=== PATIENT | male | born 1970 | race Caucasian/White ===

== ENCOUNTER 2024-08-11 07:35 | Outpatient (CLI) | payer OTHER, SELFPAY ==
--- NOTE | 2024-08-12 07:38 | NM_ITS ---
NOTE: Report was unsigned for reason: Order was edited. Original Signature date and time was: 08/12/24 @ 0934 WS: [id number] NUCLEAR MEDICINE 24 HOUR I-123 THYROID UPTAKE INDICATION: Thyroid nodule TECHNIQUE: I-123 24 HOUR THYROID UPTAKE WITH PLANAR IMAGING. 150 [facility] BENNIE 123 COMPARISON: None FINDINGS: Hot nodule in the LEFT mid and lower thyroid pole. This could be further evaluated with ultrasound. Normal homogeneous uptake RIGHT thyroid. 24-hour uptake 14.3% within normal limits NORMAL 24H THRYOID UPTAKE 8-35% MTDD NM/NM thyroid uptake multi [id number] IMPRESSION: 1. Normal 24-hour thyroid uptake 14.3% 2. Hot nodule in the LEFT mid and lower thyroid pole. This can be further eval uate with ultrasound.
== END 2024-08-11 07:36 | disposition home or self-care (01) ==
PROVIDERS: Visit Provider Family Medicine
DX: E04.1 Nontoxic single thyroid nodule (principal); R93.89 Abnormal findings on diagnostic imaging of other specified body structures
CPT/HCPCS: 78014; A9516

== ENCOUNTER 2024-11-25 09:55 | Outpatient (RCR) | payer OTHER, SELFPAY | END 2024-12-15 23:59 | disposition home or self-care (01) | LOC: SST 09:55 | PROVIDERS: Visit Provider Family Medicine | DX: R22.1 Localized swelling, mass and lump, neck (principal) | CPT/HCPCS: 92610 ==

== ENCOUNTER 2024-11-30 10:33 | Outpatient (CLI) | payer OTHER, SELFPAY ==
--- NOTE | 2024-11-30 10:41 | FL_ITS ---
WS: [id number] FL barium swallow modifd [id number] REASON FOR EXAM: Other dysphagia FLUOROSCOPY TIME: 2min [id number] # OF SPOT FILMS: 0 TECHNIQUE: Examination was supervised by the speech therapy department. The patient was examined in the sitting upright lateral position. The swallowing of varying consistencies of barium was monitored fluoroscopically and video recorded. FINDINGS: There is no penetration of contrast into the laryngeal vestibule. No aspiration. There was no impedance of the barium tablet passage through the thoracic esophagus and into the stomach. FL/FL barium swallow modifd [id number] IMPRESSION: A detailed report of the swallowing will be rendered by the speech therapy depa rtment. No aspiration. No esophageal obstruction.
== END 2024-11-30 10:34 | disposition home or self-care (01) ==
LOC: RAD 10:34
PROVIDERS: PCP Family Medicine; Visit Provider Family Medicine
DX: R13.19 Other dysphagia (principal)
CPT/HCPCS: 74230; 92611

== ENCOUNTER 2025-03-01 10:23 | Outpatient (CLI) | payer OTHER, SELFPAY ==
--- NOTE | 2025-03-01 10:28 | US_ITS ---
WS: [id number] THYROID ULTRASOUND HISTORY: REPEAT ABNORMAL THYROID NODULE FOLLOW UP NEEDED COMPARISON: Thyroid uptake 08/12/2024 Right lobe: 2.0 cm x 2.4 cm x 4.3 cm (w x ap x l). Volume: 10.0 cm3. Enlarged nodular mildly heterogeneous thyroid. No discrete well-formed nodules. The gland is nodular with mixed echogenicity. Left lobe: 1.6 cm x 1.8 cm x 4.8 cm (w x ap x l). Volume: 6.6 cm3. Mildly enlarged thyroid. Lobe is heterogeneous. There is no discrete nodule in the lower pole to correspond to the hyperfunctioning nodule seen on the thyroid uptake scan. Isthmus: 0.3 cm. US/US thyroid [id number] IMPRESSION: 1. Heterogeneous enlarged thyroid. There is no discrete nodule identified. The hyperfunctioning nodule in the lower pole of the LEFT thyroid noted on the thy roid uptake scan is not identified as a discrete nodule. 2. Findings are most likely due to a goiter.
== END 2025-03-01 10:24 | disposition home or self-care (01) ==
LOC: RAD 10:24
PROVIDERS: PCP Family Medicine; Visit Provider Nurse Practitioner Family
DX: Z01.89 Encounter for other specified special examinations (principal); E04.2 Nontoxic multinodular goiter; R94.6 Abnormal results of thyroid function studies
CPT/HCPCS: 76536

== ENCOUNTER 2025-03-10 12:08 | Outpatient (CLI) | payer OTHER, SELFPAY ==
--- NOTE | 2025-03-10 12:14 | MR_ITS ---
WS: [email or web address] MRI BRAIN WITHOUT CONTRAST HISTORY: NUMBNESS TINGLING IN BOTH ARMS SHOULDERS, history of prior brain surgery. COMPARISON: None available. TECHNIQUE: Diffusion imaging, multiplanar T1, T2 and FLAIR imaging obtained. No diffusion imaging abnormality. No acute infarct. Volume loss and area of gliosis in the LEFT cerebellum is probably the site of prior brain surgery as per history. No midline shift or mass effect. No significant atrophy other than at the postoperative surgical site of the LEFT cerebellum. No prior infarcts. Ventricles and extra-axial spaces are normal. No inferior displacement of cerebellar tonsils. The sella turcica and pituitary gland are unremarkable. Dural venous sinuses and [place] demonstrate no abnormality on this unenhanced studies. Paranasal sinuses: Mucoperiosteal thickening with within the sinus cavities. No air-fluid levels. Mastoid air cells: Large amount of increased fluid in the LEFT mastoid air cells extending along the petrous ridge. Calvarium and scalp: Intact. MR/MR head wo con* [id number] IMPRESSION: 1. No acute infarct. Normal diffusion imaging. 2. Postoperative volume loss and gliosis LEFT cerebellum. 3. There is a large amount of fluid in the LEFT mastoid air cells extending in to the petrous ridge. Cannot be further evaluated without IV contrast. 4. No additional areas of infarct or hemorrhage. Normal sized ventricles.
--- NOTE | 2025-03-10 12:51 | MR_ITS ---
WS: [email or web address] MRI CERVICAL SPINE NONCONTRAST HISTORY: HAVING NUMBNESS IN ARMS AND INCREASING FATIGUE COMPARISON: None available. Technique: Multiplanar, multisequence noncontrast imaging of the cervical spine. Normal cervical alignment with no compression fracture or significant disc space narrowing. Signal within the cervical cord is normal. Visualized posterior fossa is unremarkable. Normal craniocervical junction. Reidentified is lobulated cystic changes within the LEFT mastoid air cells extending into the LEFT skull base. This may all be related to the prior surgery. Prior imaging studies would be helpful for comparison. C2-C3: Normal. C3-C4: Normal. C4-C5: Normal. C5-C6: Minimal disc bulging and facet arthritis. C6-C7: Minimal disc bulging and facet arthritis. C7-T1: Normal. Paraspinal soft tissue are normal. MR/MR cervical spin wo con* [id number] IMPRESSION: 1. No high-grade central or foraminal stenosis. 2. No disc protrusions. 3. Normal signal in the cervical cord.
== END 2025-03-10 12:09 | disposition home or self-care (01) ==
LOC: RAD 12:10
PROVIDERS: PCP Family Medicine; Visit Provider Nurse Practitioner Family
DX: Z01.89 Encounter for other specified special examinations (principal); H74.8X2 Other specified disorders of left middle ear and mastoid; G93.89 Other specified disorders of brain; R93.0 Abnormal findings on diagnostic imaging of skull and head, not elsewhere classified; J34.89 Other specified disorders of nose and nasal sinuses
CPT/HCPCS: 70551; 72141